=== PATIENT | male | born 1985 | race Caucasian/White ===

== ENCOUNTER 2021-08-15 12:50 | Emergency (ER) | payer SELFPAY ==
[~2021-08-15] VITALS: Ht 172.7 cm; Wt 80.0 kg
[2021-08-15] MEDS ORDERED: fentaNYL PF VIAL 100 MCG/2 ML VIAL IM ONE (13:15)
--- NOTE | 2021-08-15 14:04 | ED.ADGEN ---
Past Medical History Past Surgical History: Other Additional Past Surgical Histo: Left shoulder General Adult EDM: Chief Complaint: SHOULDER INJURY HPI: HPI: Patient is a 35-year-old male who arrives ambulatory to the emergency department complaint of right shoulder pain. Patient was hanging drywall when he fell from a ladder and landed on his right shoulder. In doing so the patient believes he may have dislocated his shoulder. Patient states despite his shoulder pain he denies injury otherwise. Specifically he denies any shortness of air or chest pain. He further denies any head or neck injury. He is awake, alert and visibly uncomfortable. Review of Systems: Review of Systems: Constitutional: Denies fever or chills. [] Eyes: Denies change in visual acuity. [] HENT: Denies nasal congestion or sore throat. [] Respiratory: Denies cough or shortness of breath. [] Cardiovascular: Denies chest pain or edema. [] GI: Denies abdominal pain, nausea, vomiting, bloody stools or diarrhea. [] : Denies dysuria. [] Musculoskeletal: Reports joint pain and right shoulder pain. Denies back pain. [] Integument: Denies rash. [] Neurologic: Denies headache, focal weakness or sensory changes. [] Endocrine: Denies polyuria or polydipsia. [] Lymphatic: Denies swollen glands. [] Psychiatric: Denies depression or anxiety. [] Family History: Family History: Noncontributory Current Medications: Current Medications Medications (Trade) Dose Ordered Sig/[facility] Start Time Stop Time Status Last Admin Dose Admin Fentanyl Citrate (Fentanyl 2ml Vial) 50 mcg 1X ONCE 08/15/21 13:15 08/15/21 13:27 DC 08/15/21 13:25 50 MCG Morphine Sulfate (Morphine Sulfate) 4 mg 1X ONCE 08/15/21 14:45 08/15/21 14:46 DC 08/15/21 14:45 4 MG Ondansetron HCl (Zofran) 4 mg 1X ONCE 08/15/21 14:45 08/15/21 14:46 DC 08/15/21 14:46 4 MG Propofol (Diprivan) 200 mg 1X ONCE 08/15/21 14:15 08/15/21 14:16 DC 08/15/21 14:46 100 MG Allergies: Allergies: Allergies Coded Allergies Type Severity Reaction Last Updated Verified ketamine Allergy Intermediate 08/15/21 Yes ketorolac Allergy Intermediate 08/15/21 Yes Physical Exam: PE: Constitutional: Patient in obvious discomfort/pain. Well developed, well nourished, non-toxic appearance. [] HENT: Normocephalic, atraumatic, bilateral external ears normal, oropharynx moist, no oral exudates, nose normal. [] Eyes: PERRLA, EOMI, conjunctiva normal, no discharge. [] Neck: Normal range of motion, no tenderness, supple, no stridor. [] Cardiovascular:Heart rate regular rhythm, no murmur [] Lungs & Thorax: Bilateral breath sounds clear to auscultation [] Abdomen: Bowel sounds normal, soft, no tenderness, no masses, no pulsatile masses. [] Skin: Warm, dry, no erythema, no rash. [] Back: No tenderness, no CVA tenderness. [] Extremities: Patient has what appears to be an obvious anterior dislocation of the right shoulder. There is tenderness in the region of the right shoulder. [] Neurologic: Alert and oriented X 3, normal motor function, normal sensory function, no focal deficits noted. [] Psychologic: Affect normal, judgement normal, mood normal. [] Current Patient Data: Vital Signs: Vital Signs Date Time Temp Pulse Resp B/P (MAP) Pulse Ox O2 Delivery O2 Flow Rate FiO2 08/15/21 14:45 18 99 Room Air 08/15/21 14:21 88 112/80 76 08/15/21 13:17 98.5 98.5 EKG: EKG: [] Heart Score: C/O Chest Pain: No Risk Factors: Risk Factors: DM, Current or recent (<one month) smoker, HTN, HLP, family history of CAD, obesity. Risk Scores: Score 0 - 3: 2.5% MACE over next 6 weeks - Discharge Home Score 4 - 6: 20.3% MACE over next 6 weeks - Admit for Clinical Observation Score 7 - 10: 72.7% MACE over next 6 weeks - Early Invasive Strategies Radiology/Procedures: Radiology/Procedures: [] Impression: [facility] [address] [place] [address] IMAGING REPORT Signed PATIENT: EZ ESPARZA ACCOUNT: [id number] : 1985 LOCATION: ER AGE: 35 SEX: M EXAM STATUS: PRE ER ORD. PHYSICIAN: DENZEL AVENDANO REASON: fall onto shoulder PROCEDURE: SHOULDER 2+V RIGHT Site ID: [id number] EXAMINATION: XR SHOULDER_RIGHT 2+ VIEWS. HISTORY: 35 years Male Reason: fall onto shoulder / Spl. Instructions: / History: . COMPARISON: None. FINDINGS: There is anterior dislocation of the right glenohumeral joint. There is a no definitive the fracture identified the. The lower from anterior margin of the gl enoid however appears irregular which could relate to a bony Bankart lesion. The acromioclavicular joint appear from unremarkable. IMPRESSION: Anterior dislocation of the right shoulder with irregularity at the inferior anterior margin of the glenoid concerning for possible bony Bankart lesion. 3 views of the shoulder after reduction is recommended. Electronically signed by: Britany Matias MD (08/15/2021 2:05 PM) [id number] DICTATED and SIGNED BY: BRITANY MATIAS MD DATE: 08/15/21 [id number] [facility] [address] [place] [address] IMAGING REPORT Signed PATIENT: EZ ESPARZA ACCOUNT: [id number] : 1985 LOCATION: ER AGE: 35 SEX: M EXAM STATUS: REG ER ORD. PHYSICIAN: MANUEL DOOLEY DO REASON: reduction PROCEDURE: SHOULDER 2+V RIGHT XR SHOULDER_RIGHT 2+ VIEWS Clinical indications: Reason: reduction / Spl. Instructions: / History: FINDINGS/ IMPRESSION: Previously seen right glenohumeral joint dislocation has been reduced. No fracture line is evident. Electronically signed by: Kip Lima MD (08/15/2021 3:11 PM) [id number] DICTATED and SIGNED BY: KIP LIMA MD DATE: 08/15/21 [id number] 0 Course & Med Decision Making: Course & Med Decision Making Pertinent Labs and Imaging studies reviewed. (See chart for details) [] Ceasar Disclaimer: Ceasar Disclaimer: This electronic medical record was generated, in whole or in part, using a voice recognition dictation system. Procedural Sedation Proc Sed Indication: [Right anterior shoulder dislocation] Consent: I have discussed with the patient and/or the patient tax representative the indication, alternatives, and the possible risks and /or complications of the planned procedure and the anesthesia methods. The patient and/or patient tax representative appear to understand and agree to proceed. Pre-Sedation Documentation and Exam: Findings consistent with right anterior shoulder dislocation [] Airway Assessment: normal. Prior History of Anesthesia Complications: none. ASA Classification: 1 [] Sedation/ Anesthesia Plan: [] Medications Used: see nursing notes. Monitoring and Safety: The patient was placed on a desk monitor and vital signs, pulse oximetry and level of consciousness were continuously evaluated throughout the procedure. The patient was closely monitored until recovery from the medications was complete and the patient had returned to baseline status. Respiratory therapy was on standby at all times during the procedure. (The following sections must be completed) Post-Sedation Vital Signs: [EDM.VS] Post-Sedation Exam: Successful reduction with confirmation via repeat x-ray of right shoulder. [] Complications: none. Departure Departure Impression: Primary Impression: Dislocation of right shoulder joint Disposition: HOME / SELF CARE / HOMELESS Condition: IMPROVED Patient Instructions: Shoulder Dislocation Scripts Hydrocodone Bit/Acetaminophen (HYDROCODONE-APAP 5-325 ) 1 Tab Tablet 1 TAB PO PRN Q6HRS PRN for PAIN for 3 Days, #12 TAB 0 Refills Prov: MANUEL DOOLEY DO 08/15/21 MANUEL DOOLEY DO Aug 15, 2021 14:04
--- NOTE | 2021-08-15 14:08 | RAD ---
Site ID: [id number] EXAMINATION: XR SHOULDER_RIGHT 2+ VIEWS. HISTORY: 35 years Male Reason: fall onto shoulder / Spl. Instructions: / History: . COMPARISON: None. FINDINGS: There is anterior dislocation of the right glenohumeral joint. There is a no definitive the fracture identified the. The lower from anterior margin of the glenoid however appears irregular which could r elate to a bony Bankart lesion. The acromioclavicular joint appear from unremarkable. IMPRESSION: Anterior dislocation of the right shoulder with irregularity at the inferior anterior margin of the g lenoid concerning for possible bony Bankart lesion. 3 views of the shoulder after reduction is recomm ended. Electronically signed by: Karlos Matias MD (08/15/2021 2:05 PM) [id number]
[2021-08-15] MEDS ORDERED: PROPOFOL 10 MG/ML (20ML) VIAL. IV ONE (14:15)
[2021-08-15 14:21] VITALS: BP 112/80
[2021-08-15] MEDS ORDERED: ONDANSETRON PF 4 MG/2 ML VIAL. IVP ONE (14:45)
[2021-08-15] MEDS ORDERED: MORPHINE SULFATE 4 MG/ML INJ. IVP ONE (14:45)
--- NOTE | 2021-08-15 15:14 | RAD ---
XR SHOULDER_RIGHT 2+ VIEWS Clinical indications: Reason: reduction / Spl. Instructions: / History: FINDINGS/ IMPRESSION: Previously seen right glenohumeral joint dislocation has been reduced. No fracture line i s evident. Electronically signed by: Jhon Lima MD (08/15/2021 3:11 PM) [id number]
[2021-08-15 15:30] VITALS: BP 125/83
[2021-08-15] MEDS ORDERED: HYDR-2761 PO (15:40)
== END 2021-08-15 15:35 | disposition home or self-care (01) ==
LOC: ER 12:50
DX: S43.004A Unspecified dislocation of right shoulder joint, initial encounter (principal); Z88.8 Allergy status to other drugs, medicaments and biological substances; W11.XXXA Fall on and from ladder, initial encounter; Y93.89 Activity, other specified; Y92.89 Other specified places as the place of occurrence of the external cause; Y99.8 Other external cause status
CPT/HCPCS: 23650; 73030; 96372; 96374; 96375; 99285; J2270; J2405; J2704; J3010